=== PATIENT | female | born 1985 | race Two or more races ===

== ENCOUNTER 2021-03-20 14:06 | Emergency (ER) | payer BC ==
[~2021-03-20] VITALS: Ht 160 cm; Wt 67.0 kg
--- NOTE | 2021-03-20 15:22 | PHYS DOC ---
Past Medical History Additional Past Medical Histor: COVID positive Past Surgical History: Other Additional Past Surgical Histo: eye surgery as an infant General Adult EDM: Chief Complaint: MULTIPLE COMPLAINTS HPI: HPI: Patient is a 35 year old female presents to the emergency department complaining of nausea for the past 5 weeks. Patient states she is , 4 para 2 TAB 1, patient states she is approximately 16 weeks with a last menstrual cycle of December 01, EDC of 09/07/2021. Patient reports receiving OB care by Dr. Abbasi at [facility], has not had a sonogram yet. Patient reports she has been diagnosed with a COVID-19 virus, has had problems with nausea and vomiting 4-5 times a day. Patient states she can eat food and keep it down for short time but does want vomiting. Patient denies any blood in her vomitus. Patient denies any vaginal bleeding or vaginal discharge. Patient denies any problems with this current . Patient reports she has been given Diclegis for nausea which does not seem to help. Patient reports Zofran makes her constipated and has not helped with her nausea either. Patient denies shortness of breath or chest pain. Denies abdominal cramping, denies heart palpitations. Patient denies diaphoretic episodes dizziness or visual disturbances. Patient denies any pelvic pains. Patient denies constipation, denies urinary tract infection type signs and symptoms, denies STI concerns. Patient denies any other physical complaints or physical concerns. Review of Systems: Review of Systems: 14 body systems of review of systems have been reviewed. See HPI for pertinent positives and negative responses, otherwise all other systems are negative, nonpertinent or noncontributory. Constitutional: Negative except as outlined in HPI above. Skin: Negative except as outlined in HPI above. Eyes: Negative except as outlined in HPI above. HENT: Negative except as outlined in HPI above. Respiratory: Negative except as outlined in HPI above. Cardiovascular: Negative except as outlined in HPI above. GI: Negative except as outlined in HPI above. : Negative except as outlined in HPI above. Musculoskeletal: Negative except as outlined in HPI above. Integument: Negative except as outlined in HPI above. Neurologic: Negative except as outlined in HPI above. Endocrine: Negative except as outlined in HPI above. Lymphatic: Negative except as outlined in HPI above. Psychiatric: Negative except as outlined in HPI above. Heart Score: C/O Chest Pain: No Risk Factors: Risk Factors: DM, Current or recent (<one month) smoker, HTN, HLP, family history of CAD, obesity. Risk Scores: Score 0 - 3: 2.5% MACE over next 6 weeks - Discharge Home Score 4 - 6: 20.3% MACE over next 6 weeks - Admit for Clinical Observation Score 7 - 10: 72.7% MACE over next 6 weeks - Early Invasive Strategies Physical Exam: PE: Constitutional: Well developed, well nourished, no acute distress, non-toxic appearance. 35-year-old female in no apparent distress. HENT: Normocephalic, atraumatic. Eyes: Conjunctiva normal, no discharge. Neck: Normal range of motion, no stridor. Cardiovascular: No cyanosis appreciated, distal cap refill less than 2 seconds. Regular rate and rhythm, no murmur appreciated per auscultation. Lungs & Thorax: Patient is in no respiratory distress, no audible adventitious lung sounds appreciated. Lung sounds clear to auscultate all lung maurice. Normal work of breathing. Abdomen: Nontender, no abnormalities noted. Fundal height below umbilicus. heart tones per Doppler 140 at left lower quadrant. Skin: Warm, dry, no erythema, no rash. Back: No tenderness, no deformities. Extremities: No tenderness, no cyanosis, no clubbing, ROM intact, no edema. Neurologic: Alert and oriented X 3, normal motor function, normal sensory function, no focal deficits noted. Psychologic: Affect normal, judgement normal, mood normal. Current Patient Data: Vital Signs: Vital Signs Date Time Temp Pulse Resp B/P (MAP) Pulse Ox O2 Delivery O2 Flow Rate FiO2 03/20/21 14:41 98.2 104 14 105/57 99 Room Air 98.2 EKG: EKG: [] Radiology/Procedures: Radiology/Procedures: [] Course & Med Decision Making: Course & Med Decision Making Pertinent Labs and Imaging studies reviewed. (See chart for details) 35-year-old female, vital signs reviewed, presents to the emergency department complaint of nausea for the past 5 days. Patient is being treated with likely just by her ARCHAEOLOGY PROFESSOR. Patient reports she is supposed to take her multivitamin but does not. Patient denies any problems with this . Patient denies vaginal bleeding, patient's vital signs within normal limits, no signs of preeclampsia present. Will insert saline lock, CBC, BMP, heart tones, urinalysis assay, 1 L normal saline, 4 mg IV Zofran. Patient's labs unremarkable, patient reports her nausea is relieved, patient remains hemodynamically stable, patient was ordered additional 1 L of normal saline IV related to not being able to urinate for urinalysis assay, will reevaluate patient after period of time. After period of time, reevaluation of the patient, the patient did not have any episodes of nausea or vomiting during ED stay, patient's urine is infected, discussed with patient will start on Keflex regimen, patient is amenable to this plan and wishes to go home at this time. Patient denies any nausea and states she feels fine at this time. Discussed with patient strict follow-up with ARCHAEOLOGY PROFESSOR tomorrow. Discussed with the patient all findings and diagnostic testing as well as the need to follow-up with their primary care provider for further evaluation and treatment or return to the ED if any new or worsening symptoms. Strict return precautions were also discussed at length, the patient voiced understanding and agreement with the discharge planning. The patient was nontoxic in appearance, in no apparent distress, and hemodynamically stable at the time of disposition. N(i)² Disclaimer: N(i)² Disclaimer: This electronic medical record was generated, in whole or in part, using a voice recognition dictation system. Departure Departure Impression: Primary Impression: Urinary tract infection during in first trimester Additional Impression: Nausea and vomiting during Disposition: 01 HOME / SELF CARE / HOMELESS Condition: GOOD Referrals: NO PCP (PCP) Patient Instructions: - Urinary Tract Infection Additional Instructions: You were seen today in the emergency department for nausea and vomiting during . Your lab work was unremarkable except for your urine did show you have a urinary tract infection. I am starting you on antibiotic regimen as we discussed. Please follow-up with your ARCHAEOLOGY PROFESSOR tomorrow to discuss your symptoms with her. Please return to the emergency department for worsening symptoms or other concerns. Thank you for visiting our Emergency Department. It was a pleasure taking care of you today in the emergency department and we appreciate you trusting us with your care. If any additional problems come up don't hesitat e to return to visit us. Please follow up with your primary care provider so they can plan additional care if needed and know about the problem that you had. If symptoms worsen come back to the Emergency Department. Any concerning symptoms that start such as chest pain, shortness of air, weakness or numbness on one side of the body, running high fevers or any other concerning symptoms return to the ER. EMERGENCY DEPARTMENT GENERAL DISCHARGE INSTRUCTIONS Thank you for coming to [facility] Emergency Department (ED) today and trusting us with you care. We trust that you had a positive experience in our Emergency Department. If you wish to speak to the department management, you may call the Director at [phone]. YOUR FOLLOW UP INSTRUCTIONS ARE FOLLOWS: 1. Do you have a private Doctor? If you do not have a private doctor, please ask for a resource list of physicians or clinics that may be able to assist you with follow up care. 2. The Emergency Physicain has interpreted your x-rays. The X-Ray specialist will also review them. If there is a change in the findings, you will be notified in 48 hours when at all possible. 3. A lab test or culture has been done, your results will be reviewed and you will be notified if you need a change in treatment. ADDITIONAL INSTRUCTIONS AND INFORMATION: 1. Your care today has been supervised by a physician who is specially trained in emergency care. Many problems require more than one evaluation for a complete diagnosis and treatment. We recommend that you schedule your follow up appointment as recommended to ensure complete treatment of you illness or injury. If you are unable to obtain follow up care and continue to have a problem, or if your condition worsens, we recommend that you return to the ED. 2. We are not able to safely determine your condition over the phone nor are we able to give sound medical advice over the phone. For these safety reasons, if you call for medical advice we will ask you to come to the ED for further evaluation. 3. If you have any questions regarding these discharge instructions please call the ED at [phone]. SAFETY INFORMATION: In the interest of safety, wellness, and injury prevention; we encourage you to wear your sealbelt, if you smoke; quite smoking, and we encourage family to use a protective helmet for bicycling and other sporting events that present an increased risk for head injury. IF YOUR SYMPTOMS WORSEN OR NEW SYMPTOMS DEVELOP, OR YOU HAVE CONCERNS ABOUT YOUR CONDITION; OR IF YOUR CONDITION WORSENS WHILE YOU ARE WAITING FOR YOUR FOLLOW UP APPOINTMENT; EITHER CONTACT YOUR PRIMARY CARE DOCTOR, THE PHYSICIAN WHOSE NAME AND NUMBER YOU WERE GIVEN, OR RETURN TO THE ED IMMEDIATELY. Scripts Cephalexin (CEPHALEXIN) 500 Mg Tablet 1 TAB PO TID for 7 Days, #21 TAB 0 Refills Prov: SAMSON CONTRERAS APRN 03/20/21 SAMSON CONTRERAS APRN Mar 20, 2021 15:22
[2021-03-20 15:28] LABS: BASO % 0 % (0-3); EOS % 0 % (0-3); HEMATOCRIT 37.4 % (36.0-47.0); HEMOGLOBIN 13.1 g/dL (12.0-15.5); LYMPH # 0.8 x10^3/uL (1.0-4.8); LYMPH % 11 % (24-48); MEAN CORPUSCULAR HEMOGLOBIN 32 pg (25-35); MEAN CORPUSCULAR HGB CONC 35 g/dL (31-37); MEAN CORPUSCULAR VOLUME 92 fL (79-100); MONO # 0.2 x10^3/uL (0.0-1.1); MONO % 3 % (0-9); NEUT # 5.6 x10^3/uL (1.8-7.7); NEUT % 85 % (31-73); PLATELET COUNT 157 x10^3/uL (140-400); RED BLOOD COUNT 4.08 x10^6/uL (3.50-5.40); RED CELL DISTRIBUTION WIDTH 12.8 % (11.5-14.5); WHITE BLOOD COUNT 6.6 x10^3/uL (4.0-11.0)
[2021-03-20 15:37] LABS: CALCIUM 8.6 mg/dL (8.5-10.1); CREATININE 0.5 mg/dL (0.6-1.0); GFR 141.2; POTASSIUM 3.5 mmol/L (3.5-5.1)
[2021-03-20 15:55] LABS: % ATYL 3 % (0-0); % BANDS 8 % (0-9); % LYMPHS 5 % (24-48); % MONOS 2 % (0-10); % SEGS 82 % (35-66); PLT ESTIMATE ADEQUATE (ADEQUATE)
[2021-03-20] MEDS ORDERED: IV NORMAL SALINE 1000ML BAG 1,000 ML IV ONE ×2 (16:00→19:00)
[2021-03-20] MEDS ORDERED: ONDANSETRON PF 4 MG/2 ML VIAL. IVP ONE (16:00)
[2021-03-20 19:01] LABS: BILIRUBIN,URINE SMALL (NEG); CLARITY,URINE CLEAR; COLOR,URINE AMBER; NITRITE,URINE NEGATIVE (NEG); PROTEIN,URINE 30 mg/dL (NEG-TRACE)
[2021-03-20 19:07] LABS: BACTERIA,URINE MODERATE /HPF (0-FEW)
[2021-03-20 19:08] LABS: RBC,URINE 0 /HPF (0-2)
[2021-03-20] MEDS ORDERED: CEPH500T PO (20:27)
[2021-03-20 21:01] VITALS: BP 88/49
== END 2021-03-20 21:10 | disposition home or self-care (01) ==
LOC: ER 14:06
DX: O23.42 Unspecified infection of urinary tract in pregnancy, second trimester (principal); O21.9 Vomiting of pregnancy, unspecified; Z3A.16 16 weeks gestation of pregnancy
CPT/HCPCS: 36415; 80048; 81001; 85007; 85025; 87086; 96361; 96374; 99285; J2405; J7030